=== PATIENT | male | born 1980 | race African-American/Black ===

== ENCOUNTER 2017-05-21 15:20 | Emergency (ER) | payer BC, MEDICAID ==
[~2017-05-21] VITALS: Ht 177.8 cm; Wt 95.0 kg
[2017-05-21] MEDS ORDERED: ACETAMINOPHEN 325MG TABLET PO ONE (18:15)
[2017-05-21 19:38] VITALS: BP 116/57
== END 2017-05-21 20:16 | disposition home or self-care (01) ==
LOC: ER 17:39
DX: J03.80 Acute tonsillitis due to other specified organisms (principal); B96.89 Other specified bacterial agents as the cause of diseases classified elsewhere
CPT/HCPCS: 87070; 87430; 99284

== ENCOUNTER 2017-05-24 10:04 | Emergency (ER) | payer MEDICAID ==
[~2017-05-24] VITALS: Ht 177.8 cm; Wt 94.0 kg
[2017-05-24] MEDS ORDERED: ONDANSETRON HCL 4MG/2ML VIAL IV STA (15:38)
[2017-05-24] MEDS ORDERED: KETOROLAC 30MG/ML VIAL IV STA (15:38)
[2017-05-24] MEDS ORDERED: SODIUM CHLORIDE 0.9% 1,000 ML IV ONE (15:38)
[2017-05-24] MEDS ORDERED: DEXAMETHASONE 10 MG/ML VIAL IV ONE (15:45)
[2017-05-24] MEDS ORDERED: PENICILLIN G BENZATHINE 1,200,000 UNITS/2ML SYR IM ONE (15:45)
[2017-05-24 16:31] LABS: BASOPHILS % 0.6 % (0.0-2.0); HEMATOCRIT. 43.8 % (42.0-52.0); HEMOGLOBIN. 14.7 g/dL (14.0-18.0); MEAN CORPUSCULAR HEMOGLOBIN 29.9 pg (28.0-32.0); MONOCYTES % 12.7 % (2.0-8.0); NEUTROPHILS % 71.7 % (40.0-76.0); PLATELET 299 x1000/uL (130-400); RED BLOOD CELL COUNT 4.92 mill/uL (4.7-6.1); RED CELL DISTRIBUTION WIDTH 13.9 % (11.6-14.6)
[2017-05-24 16:46] LABS: CARBON DIOXIDE 27 mEq/L (21-32); CHLORIDE 110 mEq/L (98-107)
[2017-05-24 18:53] VITALS: BP 118/63
== END 2017-05-24 19:04 | disposition home or self-care (01) ==
LOC: ER 16:11
DX: J02.9 Acute pharyngitis, unspecified (principal); R42 Dizziness and giddiness
CPT/HCPCS: 36415; 80053; 85025; 96361; 96372; 96374; 96375; 99285; J0561; J1100; J1885; J2405; J7030; Z7610

== ENCOUNTER 2025-07-31 03:23 | Emergency (ER) | payer MEDICAID, OTHER ==
[~2025-07-31] VITALS: Ht 177.8 cm; Wt 73.0 kg
[2025-07-31 03:25] VITALS: O2SAT 98
[2025-07-31 04:24] VITALS: BP 117/66; PULSE 78; RESP 17; TEMP 37; O2SAT 98
== END 2025-07-31 04:10 | disposition home or self-care (01) ==
LOC: ER 03:23
DX: Z04.1 Encounter for examination and observation following transport accident (principal)
CPT/HCPCS: 99283